=== PATIENT | male | born 1995 | race Caucasian/White ===

== ENCOUNTER 2017-03-29 23:38 | Emergency (ER) | payer SELFPAY ==
[~2017-03-29] VITALS: Ht 170.2 cm; Wt 72.7 kg
[2017-03-29 23:40] VITALS: BP 141/70
[2017-03-30] MEDS ORDERED: PredniSONE 20 MG TABLET PO ONE (00:30)
[2017-03-30] MEDS ORDERED: LORATADINE 10 MG TABLET PO ONE (00:30)
== END 2017-03-30 00:39 | disposition home or self-care (01) ==
LOC: EMS 23:39
DX: L50.9 Urticaria, unspecified (principal); F17.210 Nicotine dependence, cigarettes, uncomplicated
CPT/HCPCS: 99283; J7512